=== PATIENT | female | born 2000 | race Caucasian/White ===

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

== ENCOUNTER 2020-01-30 22:10 | Emergency (ER) | payer OTHER ==
[2020-01-30 22:18] VITALS: BMI 35.2
[2020-01-30] MEDS ORDERED: LIDOCAINE 5% TOPICAL PATCH TP ONE (22:31)
[2020-01-30] MEDS ORDERED: KETOROLAC TROMETHAMINE 30 MG/1 ML VIAL IM ONE (22:31)
[2020-01-30] MEDS ORDERED: METHOCARBAMOL 500 MG TABLET PO ONE (22:32)
[2020-01-30] MEDS ORDERED: METHOCARBAMOL 500 MG TABLET ONE (22:34)
[2020-01-30] MEDS ORDERED: LIDOCAINE 5% TOPICAL PATCH ONE (22:35)
[2020-01-30] MEDS ORDERED: KETOROLAC TROMETHAMINE 30 MG/1 ML VIAL ONE (22:38)
--- NOTE | 2020-01-30 23:00 | PDOC ---
History of Present Illness - General Chief Complaint: Back Pain Stated Complaint: BACK PAIN/ABD Time Seen by Provider: 01/30/20 22:23 History Source: Patient Exam Limitations: No Limitations Past History - Past Medical History Allergies/Adverse Reactions: Allergies Allergy/AdvReac Type Severity Reaction Status Date / Time No Known Drug Allergies Allergy Verified 01/30/20 22:18 shellfish derived Allergy Verified 01/30/20 22:18 Home Medications: Ambulatory Orders Albuterol Sulfate Inhaler - [Ventolin Hfa Inhaler -] 1 - 2 inh PO Q4H #1 inhaler 04/09/19 PrednisoLONE [Prednisolone UNIT DOSE CUPS] 30 mg PO BID #240 mg 04/09/19 Albuterol Sulfate Inhaler - [Ventolin HFA Inhaler -] 1 - 2 inh PO Q4H PRN #1 inhaler 10/21/19 Prednisone [Prednisone 50 MG TABLETS] 50 mg PO DAILY #4 tablet 10/21/19 Lidocaine 5% Patch [Lidoderm -] 1 patch TP DAILY #7 patch 01/31/20 Methocarbamol [Robaxin -] 1,500 mg PO Q8H PRN #18 tablet 01/31/20 Anemia: Yes Asthma: Yes COPD: No - Reproductive History (#): 0 Para: 0 Cervical CA: No Dysfunctional Uterine Bleeding: No Ectopic : No Endometrial CA: No Polycystic Ovaries: No Therapeutic (s) & number: No Tubal Ligation: No Spontaneous : 0 - Immunization History Immunization Up to Date: Yes - Psycho Social/Smoking Cessation Hx Smoking Status: No Smoking History: Never smoked Have you smoked in the past 12 months: No Number of Cigarettes Smoked Daily: 0 Information on smoking cessation initiated: No Hx Alcohol Use: No Drug/Substance Use Hx: No Substance Use Type: None *Physical Exam - Vital Signs Last Vital Signs Temp Pulse Resp BP Pulse Ox 98.2 F 74 19 120/58 L 100 01/30/20 22:16 01/30/20 22:16 01/30/20 22:16 01/30/20 22:16 01/30/20 22:16 - Physical Exam General Appearance: No: Apparent Distress Respiratory/Chest: positive: Lungs Clear, Normal Breath Sounds. negative: Respiratory Distress Cardiovascular: positive: Regular Rhythm, Regular Rate, S1, S2. negative: Murmur Musculoskeletal: positive: Muscle Spasm (palpable muscle spasm along mid thoracic spine, along left side). negative: Vertebral Tenderness Neurologic: positive: Alert, Normal Mood/Affect ED Treatment Course - LABORATORY CBC & Chemistry Diagram: 01/31/20 00:26 01/31/20 00:26 Medical Decision Making - Medical Decision Making 19 y/o F with history of asthma and scoliosis presents with mid back pain after running in the park today. Pain is worse with movement of her spine. Denies trauma. Denies fever, shortness of breath, abdominal pain, nausea, vomiting, urinary symptoms. Likely muscle spasm Patient is on menstrual cycle and did not want test done Given Toradol, Robaxin, lido patch will reassess 01/30/20 23:01 On reassessment, patient still with pain; seems to worse with movement However, states pain also radiates to epigastric region, particularly when she stands up D/W Dr. Hart - recommends RUQ sono to r/o gallstones as well as xrays of spine 01/30/20 23:44 RUQ sono shows fatty mildly enlarged liver Patient feeling better now Rest of labs pending 01/31/20 01:12 Labs unremarkable spinal xrays unremarkable as well other than slight scoliosis Patient feeling better, ambulating around ED Likely muscular pain stable for dc 01/31/20 01:41 Discharge - Discharge Information Problems reviewed: Yes Clinical Impression/Diagnosis: Back spasm Condition: Improved Disposition: HOME - Admission No - Additional Discharge Information Prescriptions: Lidocaine 5% Patch [Lidoderm -] 1 patch TP DAILY #7 patch Methocarbamol [Robaxin -] 1,500 mg PO Q8H PRN #18 tablet PRN Reason: Muscle Spasms Prescription Drug Monitoring Program (I-STOP) results: I-STOP not reviewed - Follow up/Referral Referrals: Carlton Higgins MD [Primary Care Provider] - 2 Days - Patient Discharge Instructions Patient Printed Discharge Instructions: DI for Back Spasm Additional Instructions: Thank you for choosing [facility]. It was a pleasure taking care of you. Take Motrin 600 mg every 6 hours as needed for pain. Take with food. Use Robaxin as needed for muscle spasms. This medication can make you drowsy. Heating pads/epsom salt baths may also help Follow-up with your doctor in 2 days Return to the Emergency Department if your symptoms worsen or persist or have other concerning symptoms. - Post Discharge Activity
[2020-01-30] MEDS ORDERED: morphine CARPU-JECT 4 MG/1 ML DISP.SYRIN IVPUSH ONE (23:41)
[2020-01-30] MEDS ORDERED: morphine SULFATE 4 MG/ML VIAL ONE (23:47)
[2020-01-31 00:41] LABS: BASO % 1.1 % (0-2.0); EOS % 5.1 % (0-4.5); HEMATOCRIT 33.1 % (32.4-45.2); HEMOGLOBIN 10.9 GM/dL (10.7-15.3); LYMPH % 35.8 % (8-40); MCH 26.2 pg (25.7-33.7); MCHC 32.8 g/dl (32.0-36.0); MEAN CELL VOLUME 79.8 fl (80-96); MEAN PLT VOLUME 9.9 fl (7.5-11.1); MONO % 8.8 % (3.8-10.2); NEUT % 49.2 % (42.8-82.8); PLATELET COUNT 343 K/MM3 (134-434); RBC 4.15 M/mm3 (3.60-5.2); RDW 16.1 % (11.6-15.6); WHITE BLOOD COUNT 7.8 K/mm3 (4.0-10.0)
[2020-01-31 01:17] LABS: ALBUMIN 3.7 g/dl (3.4-5.0); BILIRUBIN,TOTAL 0.2 mg/dL (0.2-1); BLOOD UREA NITROGEN 12.2 mg/dL (7-18); CALCIUM 9.1 mg/dL (8.5-10.1); CREATININE 0.7 mg/dL (0.55-1.3); POTASSIUM 4.1 mmol/L (3.5-5.1); TOT PROT 7.3 g/dl (6.4-8.2)
[2020-01-31 01:57] VITALS: BP 127/44; PULSE 59; TEMP 97.6
== END 2020-01-31 01:55 | disposition home or self-care (01) ==
LOC: JER 22:10
PROC: 3E033NZ Introduction of Analgesics, Hypnotics, Sedatives into Peripheral Vein, Percutaneous Approach (ICD-10-PCS; principal; 2020-01-30)
PROC: 3E0233Z Introduction of Anti-inflammatory into Muscle, Percutaneous Approach (ICD-10-PCS; 2020-01-30)
DX: M62.830 Muscle spasm of back (principal); J45.909 Unspecified asthma, uncomplicated; Z86.2 Personal history of diseases of the blood and blood-forming organs and certain disorders involving the immune mechanism
CPT/HCPCS: 36415; 72070-TC-FY; 72100-TC-FY; 76705-TC; 80053; 83690; 84703; 85025; 96372; 96374; 99285-25

== ENCOUNTER → 2020-07-22 | Day surgery (SDC) | payer OTHER ==
--- NOTE | 2020-07-25 14:12 | PATH ---
Surgical Pathology Report Patient Name: MIKAYLA WEATHERS Med. Rec. #: [id number] /Age/Gender: 2000 (Age: 19) / F Account: [id number] Location: [facility] Taken: 07/22/2020 Received: 07/22/2020 Reported: 07/25/2020 Physicians: Ryan Muñoz M.D. Specimen(s) Received LEFT BREAST 1:00 4CMFN Clinical History Ultrasound findings: Probably benign Final Diagnosis LEFT BREAST 1:00, 4 CM FN, BIOPSY: BREAST TISSUE WITH FIBROADENOMA. Electronically Signed Alon Banks M.D. Gross Description Received in formalin labeled "left breast biopsy 1:00, 4 cmfn," is a 1.0 x 0.7 x 0.1 cm aggregate of ruther[place], irregular to cylindrical portions of fibroadipose tissue. The specimen is entirely submitted in one cassette. Time to formalin fixation: 2 minutes Total formalin fixation time: Approximately 6 hours. /07/22/2020 [facility]/07/22/2020
== END | disposition home or self-care (01) ==
LOC: FRADUS-SUR 12:38
PROVIDERS: ATTEND Physician Assistant
PROC: 0HBU3ZX Excision of Left Breast, Percutaneous Approach, Diagnostic (ICD-10-PCS; principal; 2020-07-22)
DX: D24.2 Benign neoplasm of left breast (principal); N63.21 Unspecified lump in the left breast, upper outer quadrant
CPT/HCPCS: 19083; 87899; 88305-TC; A4648

== ENCOUNTER 2022-04-09 16:59 | Emergency (ER) | payer OTHER ==
[2022-04-09 17:23] VITALS: BP 116/74; PULSE 82; TEMP 98.3; BMI 37.0
== END 2022-04-09 18:43 | disposition home or self-care (01) ==
LOC: JER 16:59
DX: O99.512 Diseases of the respiratory system complicating pregnancy, second trimester (principal); J45.991 Cough variant asthma; Z3A.16 16 weeks gestation of pregnancy
CPT/HCPCS: 0241U-QW; 87807; 99283-25; C9803-CS; U0003; U0005

== ENCOUNTER 2022-10-01 07:35 | Inpatient (IN) | payer OTHER ==
[2022-10-01] MEDS ORDERED: AMPICILLIN - 2 GM in SODIUM CHLORIDE 100 ML IVPB ONE (09:00)
[2022-10-01] MEDS ORDERED: AMPICILLIN SODIUM 2 GM VIAL ONE (09:03)
[2022-10-01 09:13] LABS: BASO % 0.5 % (0-2.0); HEMATOCRIT 32.7 % (32.4-45.2); HEMOGLOBIN 10.5 GM/dL (10.7-15.3); MCHC 32.1 g/dl (32.0-36.0); MEAN CELL VOLUME 78.1 fl (80-96); MEAN PLT VOLUME 9.7 fl (7.5-11.1); MONO % 5.4 % (3.8-10.2); NEUT % 83.1 % (42.8-82.8); PLATELET COUNT 270 10^3/uL (134-434); RBC 4.19 M/mm3 (3.60-5.2); RDW 17.6 % (11.6-15.6); WHITE BLOOD COUNT 12.5 K/mm3 (4.0-10.0)
[2022-10-01 09:21] LABS: INR 1.05 (0.83-1.09); PROTHROMBIN TIME (PATIENT) 12.1 SEC (9.7-13.0)
[2022-10-01 09:22] LABS: ACTIVATED PTT 28.2 SECONDS (25.2-36.5)
[2022-10-01] MEDS ORDERED: PROMETHAZINE HCL 25 MG/1 ML VIAL IVPUSH ONE (09:29)
[2022-10-01] MEDS ORDERED: BUTORPHANOL TARTRATE 1 MG/ML VIAL IVPB PRN (09:29)
[2022-10-01] MEDS ORDERED: ELECTROLYTE-148 SOLN 1,000 ML IV SCH (09:30)
[2022-10-01] MEDS ORDERED: FENTANYL/BUPIVACAINE/NS/PF - PCEA - 50 ML DISP.SYRIN EP SCH (09:30)
[2022-10-01 09:31] LABS: CALCIUM 8.5 mg/dL (8.5-10.1)
[2022-10-01 09:32] LABS: BLOOD UREA NITROGEN 5.2 mg/dL (7-18)
[2022-10-01 09:35] LABS: CREATININE 0.5 mg/dL (0.55-1.3)
[2022-10-01] MEDS ORDERED: FENTANYL/BUPIVACAINE/NS/PF - PCEA - 50 ML DISP.SYRIN EP ONE ×3 (09:36→15:25)
[2022-10-01] MEDS ORDERED: NALOXONE HCL 0.4 MG/ML VIAL IVPUSH PRN (12:48)
[2022-10-01] MEDS ORDERED: AMPICILLIN SODIUM 1 GM VIAL ONE ×2 (12:58→16:32)
[2022-10-01] MEDS: AMPICILLIN - 1 GM in SODIUM CHLORIDE 100 ML IVPB SCH ×2 (13:00→22:47)
[2022-10-01 13:19] VITALS: BMI 39.9
[2022-10-01] MEDS ORDERED: OXYTOCIN 30 UNITS in 0.9% NS 30 UNIT/500 ML INFUS.BAG IVPB ONE (15:56)
[2022-10-01] MEDS ORDERED: OXYTOCIN 20 UNITS in 0.9% NS 20 UNIT/1,000 ML INFUS.BAG IV ONE ×2 (15:58→19:54)
[2022-10-01] MEDS ORDERED: BISACODYL 10 MG SUPP.RECT RC PRN (16:04)
[2022-10-01] MEDS ORDERED: METHYLERGONOVINE MALEATE 0.2 MG/1 ML AMP IM PRN (16:04)
[2022-10-01] MEDS ORDERED: WITCH HAZEL 50% (TUCKS) 40 PAD/JAR PAD TP PRN (16:04)
[2022-10-01] MEDS ORDERED: ACETAMINOPHEN 325 MG TABLET (FP) PO PRN (16:04)
[2022-10-01] MEDS ORDERED: oxyCODONE HCL 5 MG TABLET PO PRN (16:04)
[2022-10-01] MEDS ORDERED: BENZOCAINE 28 GM HEMORRHOIDAL OINTMENT TP PRN (16:04)
[2022-10-01] MEDS ORDERED: BENZOCAINE 20% 57 GM BOTTLE TP PRN (16:04)
[2022-10-01] MEDS ORDERED: ONDANSETRON 4 MG/2 ML VIAL IVPUSH PRN (16:06)
[2022-10-01] MEDS ORDERED: OXYTOCIN 30 UNITS in 0.9% NS 30 UNIT/500 ML INFUS.BAG IVPB SCH (16:15)
[2022-10-01] MEDS ORDERED: OXYTOCIN 20 UNITS in 0.9% NS 20 UNIT/1,000 ML INFUS.BAG IV SCH (16:15)
[2022-10-01] MEDS ORDERED: IBUPROFEN 600 MG TABLET (FP) PO ONE (20:05)
[2022-10-01] MEDS: IBUPROFEN 600 MG TABLET (FP) PO PRN (20:10)
[2022-10-01 20:31] LABS: CORD HCO3 22.7 mmHg (20-29); CORD PCO2 42.9 mmHg (30-78); CORD pH 7.342 (7.14-7.44)
[2022-10-01 20:35] LABS: CORD HCO3 21.2 mmHg (20-29); CORD pH 7.343 (7.14-7.44)
[2022-10-01] MEDS: FERROUS SO4 325 MG TABLET (FP) PO SCH (22:47)
[2022-10-02 08:59] LABS: BASO % 0.3 % (0-2.0); EOS % 0.4 % (0-4.5); HEMATOCRIT 24.4 % (32.4-45.2); HEMOGLOBIN 7.9 GM/dL (10.7-15.3); LYMPH % 15.3 % (8-40); MCH 25.5 pg (25.7-33.7); MCHC 32.5 g/dl (32.0-36.0); MEAN CELL VOLUME 78.3 fl (80-96); MEAN PLT VOLUME 9.7 fl (7.5-11.1); MONO % 7.6 % (3.8-10.2); NEUT % 76.4 % (42.8-82.8); PLATELET COUNT 218 10^3/uL (134-434); RBC 3.11 M/mm3 (3.60-5.2); RDW 17.8 % (11.6-15.6); WHITE BLOOD COUNT 15.8 K/mm3 (4.0-10.0)
[2022-10-02] MEDS: FERROUS SO4 325 MG TABLET (FP) PO SCH ×3 (09:00→17:38)
[2022-10-02] MEDS ORDERED: DIPHTH,PERTUSS(ACELL),TET 0.5 ML DISP.SYRIN IM ONE (10:00)
[2022-10-02] MEDS: DOCUSATE SODIUM 100 MG CAPSULE (FP) PO SCH (10:41)
[2022-10-02] MEDS: PRENATAL VITAMINS W/ FOLIC ACID TABLET (FP) PO SCH (10:41)
[2022-10-02] MEDS ORDERED: SENNOSIDES/DOCUSATE COMBO (SENNA PLUS) TABLET (UD) PO PRN (22:00)
[2022-10-03] MEDS: IBUPROFEN 600 MG TABLET (FP) PO PRN (09:19)
[2022-10-03] MEDS: DOCUSATE SODIUM 100 MG CAPSULE (FP) PO SCH (09:19)
[2022-10-03] MEDS: FERROUS SO4 325 MG TABLET (FP) PO SCH (09:19)
[2022-10-03] MEDS: PRENATAL VITAMINS W/ FOLIC ACID TABLET (FP) PO SCH (09:19)
[2022-10-03 10:16] VITALS: BP 132/74; PULSE 70; RESP 16; TEMP 97.6
== END 2022-10-03 13:20 | disposition home or self-care (01) | DRG 560 ==
LOC: JLDR 07:35 → UNDOADMIN 08:00 → JLDR 08:00 → J3W 21:52
PROVIDERS: ADMIT Obstetrics & Gynecology; ATTEND Obstetrics & Gynecology
PROC: 0HQ9XZZ Repair Perineum Skin, External Approach (ICD-10-PCS; principal; 2022-10-01)
PROC: 0W8NXZZ Division of Female Perineum, External Approach (ICD-10-PCS; 2022-10-01)
PROC: 10E0XZZ Delivery of Products of Conception, External Approach (ICD-10-PCS; 2022-10-01)
DX: O70.0 First degree perineal laceration during delivery (principal); O98.52 Other viral diseases complicating childbirth; U07.1 COVID-19; O99.213 Obesity complicating pregnancy, third trimester; O99.824 Streptococcus B carrier state complicating childbirth; Z3A.39 39 weeks gestation of pregnancy; Z37.0 Single live birth
CPT/HCPCS: 36415; 36600; 59025; 59409; 80048; 80053; 82803; 85025; 85610; 85730; 86780; 86850; 86900; 86901; 90715; C9803-CS; G0463-25; U0003; U0005